=== PATIENT | male | born 1940 ===

== ENCOUNTER → 2021-03-01 | Outpatient (CLI) | payer MEDICARE ==
[~2021-03-01] MED LIST: CLOPIDOGREL75 MG PO; ISOSORBIDE MONO30 MG PO; LISINOPRIL-HCT1 EACH PO; METFORMIN HCL500 M2 PO; ZETIA10 MG PO
[2021-03-01 12:00] LABS: HEMOGLOBIN 13.1 gm/dl (14.0-17.5); RED BLOOD COUNT 4.24 M/UL (4.20-5.50); WHITE BLOOD COUNT 11.6 K/UL (4.5-11.0)
== END ==
LOC: OPSV2 11:00
PROVIDERS: Orthopaedic Surgery
DX: Z01.818 Encounter for other preprocedural examination (principal); G56.02 Carpal tunnel syndrome, left upper limb
CPT/HCPCS: 80048; 85025; 93005